=== PATIENT | female | born 1970 | race Caucasian/White ===

== ENCOUNTER 2020-07-31 22:10 | Emergency (ER) | payer OTHER ==
[~2020-07-31] VITALS: Ht 160 cm; Wt 63.5 kg
== END 2020-07-31 22:45 | disposition home or self-care (01) ==
LOC: ER 22:28
DX: M54.6 Pain in thoracic spine (principal); S23.3XXA Sprain of ligaments of thoracic spine, initial encounter; X50.0XXA Overexertion from strenuous movement or load, initial encounter; E78.5 Hyperlipidemia, unspecified; J44.9 Chronic obstructive pulmonary disease, unspecified; Z86.73 Personal history of transient ischemic attack (TIA), and cerebral infarction without residual deficits
CPT/HCPCS: 99282

== ENCOUNTER 2020-12-01 19:51 | Emergency (ER) | payer SELFPAY ==
[~2020-12-01] VITALS: Ht 160 cm; Wt 84.8 kg
[2020-12-01] MEDS ORDERED: HYDROCODONE/APAP 5MG-325MG TAB PO ONE (20:30)
[2020-12-01] MEDS ORDERED: PREDNISONE 20 MG TAB PO ONE (20:30)
[2020-12-01] MEDS ORDERED: KETOROLAC TROMETHAMINE 60 MG/2 ML VIAL IM ONE (20:30)
[2020-12-01] MEDS ORDERED: PROMETHAZINE HC25 M1 PO (20:33)
[2020-12-01] MEDS ORDERED: TYLENOL # 31 EA PO (20:33)
[2020-12-01] MEDS ORDERED: PREDNISONE20 MG PO (20:33)
[2020-12-01] MEDS ORDERED: IBUPROFEN IB200 MG PO (20:33)
[2020-12-01] MEDS ORDERED: PREDNISONE 20 MG TAB ONE (20:38)
[2020-12-01] MEDS ORDERED: KETOROLAC TROMETHAMINE 60 MG/2 ML VIAL ONE (20:39)
[2020-12-01] MEDS ORDERED: HYDROCODONE/APAP 5MG-325MG TAB ONE (20:39)
[2020-12-01 20:55] VITALS: BP 147/69
== END 2020-12-01 20:55 | disposition home or self-care (01) ==
LOC: FSED 19:54
DX: M54.2 Cervicalgia (principal); M54.12 Radiculopathy, cervical region; E78.5 Hyperlipidemia, unspecified; J44.9 Chronic obstructive pulmonary disease, unspecified; J45.909 Unspecified asthma, uncomplicated; Z86.73 Personal history of transient ischemic attack (TIA), and cerebral infarction without residual deficits; F17.210 Nicotine dependence, cigarettes, uncomplicated
CPT/HCPCS: 99283; J1885; J7512